=== PATIENT | female | born 1985 | race Caucasian/White ===

== ENCOUNTER 2017-05-06 17:43 | Inpatient (IN) | payer MEDICARE, OTHER ==
[2017-05-06] MEDS ORDERED: SODIUM CHLORIDE 0.9% 1,000 ML IV STA (18:12)
[2017-05-06 18:43] LABS: Anisocytosis Slight; Basophils % (A) 1 %; CHCM 33.1; Eosinophils # (A) 0.1 k/uL (0-0.7); Eosinophils % (A) 3 %; HCT 40.9 % (34.0-46.0); HDW 2.25; HGB 13.7 gm/dL (11.4-16.0); Luc # (Auto) 0.06; Luc % (Auto) 2; Lymphocytes # (A) 0.7 k/uL (1.0-4.8); Lymphocytes % (A) 29 %; MCH 36.6 pg (25.0-35.0); MCHC 33.6 g/dL (31.0-37.0); Macrocytosis Marked; Mean Platelet Volume 9.5; Monocytes # (A) 0.2 k/uL (0-1.0); Monocytes % (A) 11 %; Neutrophils # (A) 1.2 k/uL (1.3-7.7); Neutrophils % (A) 54 %; RBC 3.75 m/uL (3.80-5.40); RDW 16.9 % (11.5-15.5); WBC 2.3 k/uL (3.8-10.6); WBC (Perox) 2.66
--- NOTE | 2017-05-06 18:55 | ED ---
Psych HPI - General Source: patient, EMS, RN notes reviewed Mode of arrival: EMS <Nayeli Rosario - Last Filed: 05/06/17 18:53> <Jr Merlos - Last Filed: 05/06/17 23:20> - General Chief Complaint: Psychiatric Symptoms Stated Complaint: altered mental status Time Seen by Provider: 05/06/17 17:54 - History of Present Illness Initial Comments: 31-year-old female presents to the emergency department with a chief complaint of hallucinations. Patient is currently at [place] alcohol withdrawal. She started running around looking for her kids half naked. He states they were concerned states that her here. On arrival patient states that she feels as if she has been out of it as well as she is complaining of abdominal pain. Patient denies alcoholic and admits to history of pancreatitis. Patient denies any headaches, or any other symptoms at this time. Patient does have an abnormal voice however she states this is due to a thyroid complication surgery. Patient denies any fever chills any shortness of breath any chest pain. (Nayeli Rosario) - Related Data Home Medications Medication Instructions Recorded Confirmed Levothyroxine Sodium [Synthroid] 125 mcg PO DAILY 05/06/17 05/06/17 Multivitamins, Thera [Multivitamin 1 tab PO DAILY 05/06/17 05/06/17 (formulary)] Allergies Allergy/AdvReac Type Severity Reaction Status Date / Time morphine Allergy Unknown Verified 05/06/17 18:25 Review of Systems ROS Other: All systems not noted in ROS Statement are negative. <Nayeli Rosario - Last Filed: 05/06/17 18:53> ROS Other: All systems not noted in ROS Statement are negative. <Jr Merlos - Last Filed: 05/06/17 23:20> ROS Statement: Those systems with pertinent positive or pertinent negative responses have been documented in the HPI. Past Medical History Past Medical History: Unable to Obtain, Thyroid Disorder Additional Past Medical History / Comment(s): deviated trachea History of Any Multi-Drug Resistant Organisms: None Reported Additional Past Surgical History / Comment(s): thyroid, Past Psychological History: Unable to Obtain Smoking Status: Current every day smoker Past Alcohol Use History: Abuse, Daily Past Drug Use History: None Reported <Nayeli Rosario - Last Filed: 05/06/17 18:53> General Exam Limitations: no limitations, altered mental status General appearance: alert, in no apparent distress Head exam: Present: atraumatic, normocephalic, normal inspection Eye exam: Present: normal appearance, PERRL, EOMI. Absent: scleral icterus, conjunctival injection, periorbital swelling Neck exam: Present: normal inspection. Absent: tenderness, meningismus, lymphadenopathy Respiratory exam: Present: normal lung sounds bilaterally. Absent: respiratory distress, wheezes, rales, rhonchi, stridor Cardiovascular Exam: Present: regular rate, normal rhythm, normal heart sounds. Absent: systolic murmur, diastolic murmur, rubs, gallop, clicks GI/Abdominal exam: Present: soft, normal bowel sounds. Absent: distended, tenderness, guarding, rebound, rigid Neurological exam: Present: alert, oriented X3 Psychiatric exam: Present: normal affect, normal mood Skin exam: Present: warm, dry, intact, normal color. Absent: rash <Nayeli Rosario - Last Filed: 05/06/17 18:53> Medical Decision Making <Nayeli Rosario - Last Filed: 05/06/17 18:53> - Lab Data Result diagrams: 05/06/17 18:25 05/06/17 19:25 <Jr Merlos - Last Filed: 05/06/17 23:20> - Medical Decision Making 31-year-old female presents for altered mental status from alcohol rehabilitation. (Nayeli Rosario) EKG shows normal sinus rhythm at 65 bpm NJ interval is 152 QRS is 92 QT interval is 456 QTC is 474. Patient has inverted T waves in leads V1 through V4 as well as lead 3 I went into reevaluate the patient the patient was alert and oriented 3 and she did complain of some epigastric abdominal pain that she described as moderate. Patient denied any nausea or vomiting at this time. Patient states she used to be a heavy drinker. I spoke with Dr. Baum admitted the patient and wrote admitting orders (Jr Merlos) - Lab Data Lab Results 05/06/17 05/06/17 05/06/17 Range/Units 18:25 19:10 19:10 WBC 2.3 L (3.8-10.6) k/uL RBC 3.75 L (3.80-5.40) m/uL Hgb 13.7 (11.4-16.0) gm/dL Hct 40.9 (34.0-46.0) % MCV 109.0 H (80.0-100.0) fL MCH 36.6 H (25.0-35.0) pg MCHC 33.6 (31.0-37.0) g/dL RDW 16.9 H (11.5-15.5) % Plt Count 92 L (150-450) k/uL Neutrophils % 54 % Lymphocytes % 29 % Monocytes % 11 % Eosinophils % 3 % Basophils % 1 % Neutrophils # 1.2 L (1.3-7.7) k/uL Lymphocytes # 0.7 L (1.0-4.8) k/uL Monocytes # 0.2 (0-1.0) k/uL Eosinophils # 0.1 (0-0.7) k/uL Basophils # 0.0 (0-0.2) k/uL Anisocytosis Slight Macrocytosis Marked Sodium (137-145) mmol/L Potassium (3.5-5.1) mmol/L Chloride (98-107) mmol/L Carbon Dioxide (22-30) mmol/L Anion Gap mmol/L BUN (7-17) mg/dL Creatinine (0.52-1.04) mg/dL Est GFR (MDRD) Af Amer (>60 ml/min/1.73 sqM) Est GFR (MDRD) Non-Af (>60 ml/min/1.73 sqM) Glucose (74-99) mg/dL Plasma Lactic Acid Tye (0.7-2.0) mmol/L Calcium (8.4-10.2) mg/dL Phosphorus (2.5-4.5) mg/dL Magnesium (1.6-2.3) mg/dL Total Bilirubin (0.2-1.3) mg/dL AST (14-36) U/L ALT (9-52) U/L Alkaline Phosphatase (38-126) U/L Ammonia (<30) umol/L Troponin I (0.000-0.034) ng/mL Total Protein (6.3-8.2) g/dL Albumin (3.5-5.0) g/dL Amylase (30-110) U/L Lipase (23-300) U/L Urine Color Yellow Urine Appearance Clear (Clear) Urine pH 7.0 (5.0-8.0) Ur Specific [place] 1.013 (1.001-1.035) Urine Protein Negative (Negative) Urine Glucose (UA) Negative (Negative) Urine Ketones Negative (Negative) Urine Blood Negative (Negative) Urine Nitrite Negative (Negative) Urine Bilirubin Negative (Negative) Urine Urobilinogen <2.0 (<2.0) mg/dL Ur Leukocyte Esterase Moderate H (Negative) Urine RBC 1 (0-5) /hpf Urine WBC 5 (0-5) /hpf Ur Squamous Epith Cells 2 (0-4) /hpf Urine Bacteria Rare H (None) /hpf Hyaline Casts 1 (0-2) /lpf Urine Mucus Rare H (None) /hpf Urine HCG, Qual Not Detected (Not Detectd) Urine Opiates Screen Not Detected (NotDetected) Ur Oxycodone Screen Not Detected (NotDetected) Urine Methadone Screen Detected H (NotDetected) Ur Propoxyphene Screen Not Detected (NotDetected) Ur Barbiturates Screen Not Detected (NotDetected) U Tricyclic Antidepress Not Detected (NotDetected) Ur Phencyclidine Scrn Not Detected (NotDetected) Ur Amphetamines Screen Not Detected (NotDetected) U Methamphetamines Scrn Detected H (NotDetected) U Benzodiazepines Scrn Detected H (NotDetected) Urine Cocaine Screen Not Detected (NotDetected) U Marijuana (THC) Screen Not Detected (NotDetected) Serum Alcohol mg/dL 05/06/17 05/06/17 05/06/17 Range/Units 19:25 19:25 19:25 WBC (3.8-10.6) k/uL RBC (3.80-5.40) m/uL Hgb (11.4-16.0) gm/dL Hct (34.0-46.0) % MCV (80.0-100.0) fL MCH (25.0-35.0) pg MCHC (31.0-37.0) g/dL RDW (11.5-15.5) % Plt Count (150-450) k/uL Neutrophils % % Lymphocytes % % Monocytes % % Eosinophils % % Basophils % % Neutrophils # (1.3-7.7) k/uL Lymphocytes # (1.0-4.8) k/uL Monocytes # (0-1.0) k/uL Eosinophils # (0-0.7) k/uL Basophils # (0-0.2) k/uL Anisocytosis Macrocytosis Sodium 140 (137-145) mmol/L Potassium 3.9 (3.5-5.1) mmol/L Chloride 101 (98-107) mmol/L Carbon Dioxide 26 (22-30) mmol/L Anion Gap 13 mmol/L BUN 9 (7-17) mg/dL Creatinine 0.70 (0.52-1.04) mg/dL Est GFR (MDRD) Af Amer >60 (>60 ml/min/1.73 sqM) Est GFR (MDRD) Non-Af >60 (>60 ml/min/1.73 sqM) Glucose 82 (74-99) mg/dL Plasma Lactic Acid Tye 1.2 (0.7-2.0) mmol/L Calcium 10.4 H (8.4-10.2) mg/dL Phosphorus 4.4 (2.5-4.5) mg/dL Magnesium 1.7 (1.6-2.3) mg/dL Total Bilirubin 1.2 (0.2-1.3) mg/dL AST 181 H (14-36) U/L ALT 139 H (9-52) U/L Alkaline Phosphatase 121 (38-126) U/L Ammonia 24 (<30) umol/L Troponin I <0.012 (0.000-0.034) ng/mL Total Protein 6.8 (6.3-8.2) g/dL Albumin 4.1 (3.5-5.0) g/dL Amylase 79 (30-110) U/L Lipase 1736 H (23-300) U/L Urine Color Urine Appearance (Clear) Urine pH (5.0-8.0) Ur Specific [place] (1.001-1.035) Urine Protein (Negative) Urine Glucose (UA) (Negative) Urine Ketones (Negative) Urine Blood (Negative) Urine Nitrite (Negative) Urine Bilirubin (Negative) Urine Urobilinogen (<2.0) mg/dL Ur Leukocyte Esterase (Negative) Urine RBC (0-5) /hpf Urine WBC (0-5) /hpf Ur Squamous Epith Cells (0-4) /hpf Urine Bacteria (None) /hpf Hyaline Casts (0-2) /lpf Urine Mucus (None) /hpf Urine HCG, Qual (Not Detectd) Urine Opiates Screen (NotDetected) Ur Oxycodone Screen (NotDetected) Urine Methadone Screen (NotDetected) Ur Propoxyphene Screen (NotDetected) Ur Barbiturates Screen (NotDetected) U Tricyclic Antidepress (NotDetected) Ur Phencyclidine Scrn (NotDetected) Ur Amphetamines Screen (NotDetected) U Methamphetamines Scrn (NotDetected) U Benzodiazepines Scrn (NotDetected) Urine Cocaine Screen (NotDetected) U Marijuana (THC) Screen (NotDetected) Serum Alcohol <10 mg/dL Disposition <Nayeli Rosario - Last Filed: 05/06/17 18:53> Time of Disposition: 23:20 <Jr Merlos - Last Filed: 05/06/17 23:20> Clinical Impression: Pancreatitis, Altered mental status, Methadone withdrawal, Methamphetamine abuse Disposition: ADMITTED IP TO THIS HOSP Referrals: None,Stated [Primary Care Provider] - 1-2 days
[2017-05-06] MEDS ORDERED: LORazepam 2 MG/ML SYRINGE IV STA (19:26)
[2017-05-06 19:29] LABS: Appearance,Urine Clear (Clear); Bacteria,Urine Rare /hpf; Bilirubin,Urine Negative (Negative); Glucose,Urine (UA) Negative (Negative); Ketones,Urine Negative (Negative); Leukocyte Esterase,Urine Moderate (Negative); Mucus,Urine Rare /hpf; Nitrite,Urine Negative (Negative); Particle Count 5841; Protein,Urine Negative (Negative); RBC,Urine 1 /hpf (0-5); Specific Gravity,Urine 1.013 (1.001-1.035); Squamous Epithelial Cell,Urine 2 /hpf (0-4); UA Billing (MACRO vs. MICRO) MICRO; Urobilinogen,Urine <2.0 mg/dL (<2.0); WBC,Urine 5 /hpf (0-5)
[2017-05-06 19:53] LABS: ALT 139 U/L (9-52); AST 181 U/L (14-36); Alcohol <10 mg/dL; Alkaline Phosphatase 121 U/L (38-126); Amylase 79 U/L (30-110); Anion Gap 13 mmol/L; Blood Urea Nitrogen 9 mg/dL (7-17); Calcium 10.4 mg/dL (8.4-10.2); Carbon Dioxide 26 mmol/L (22-30); Chloride 101 mmol/L (98-107); Glucose 82 mg/dL (74-99); Magnesium 1.7 mg/dL (1.6-2.3); Non-African American GFR(MDRD) >60 (>60 ml/min/1.73 sqM); Phosphorous 4.4 mg/dL (2.5-4.5); Potassium 3.9 mmol/L (3.5-5.1); Sodium 140 mmol/L (137-145); Total Bilirubin 1.2 mg/dL (0.2-1.3); Total Protein 6.8 g/dL (6.3-8.2)
--- NOTE | 2017-05-06 19:59 | CT ---
EXAMINATION TYPE: CT brain wo con DATE OF EXAM: 05/06/2017 COMPARISON: NONE INDICATION: Patient poor historian. Patient shows signs of altered mental status. DLP: 804.7 mGycm, Automated exposure control for dose reduction was used. CONTRAST: None CT of the brain is performed utilizing 3 mm thick sections through the posterior fossa and 3 mm thick sections through the remaining calvarium. Study is performed within 24 hours of arrival to the hosp ital. No abnormal hyperdensity is present to suggest an acute intracranial hemorrhage. No mass lesion is evident. No acute infarcts are evident. Ventricles and sulci are appropriate for the patient age. There is mucosal thickening and opacification an anterior right sphenoid sinus. Remaining paranasal s inuses are clear. IMPRESSIONS: 1. No acute intracranial process.
--- NOTE | 2017-05-06 20:01 | XR ---
EXAMINATION TYPE: XR chest 2V DATE OF EXAM: 05/06/2017 COMPARISON: NONE INDICATION: Cough TECHNIQUE: Frontal and lateral views of the chest are obtained. FINDINGS: The heart size is normal. The pulmonary vasculature is normal. Multiple surgical clips in the right supraclavicular region. Suspicious infiltrates are evident. Nipp le piercing is on the left.. IMPRESSION: 1. No acute pulmonary process.
[2017-05-06] MEDS ORDERED: SODIUM CHLORIDE 0.9% 1,000 ML IV ONE (23:20)
[2017-05-07] MEDS: ENOXAPARIN 40 MG/0.4 ML SYRINGE SQ SCH (08:44)
[2017-05-07] MEDS: LEVOTHYROXINE 125 MCG TAB PO SCH (08:44)
[2017-05-07] MEDS: MULTIVITAMINS, THERA 1 EACH TAB PO SCH (13:21)
[2017-05-07] MEDS ORDERED: IBUPROFEN 400 MG TAB PO PRN (13:27)
[2017-05-07] MEDS ORDERED: ACETAMINOPHEN TAB 325 MG TAB PO PRN (13:27)
[2017-05-07] MEDS: DIAZEPAM 2 MG TAB PO SCH ×3 (17:13→21:08)
[2017-05-07] MEDS: NICOTINE 14MG/24HR PATCH TRANSDERM SCH (18:42)
[2017-05-07] MEDS: LORazepam 2 MG/ML SYRINGE IV PRN ×2 (18:42→23:26)
--- NOTE | 2017-05-07 22:23 | HP ---
DATE OF ADMISSION: 05/06/2017 PRESENTING COMPLAINT: Hallucinations. HISTORY OF PRESENTING COMPLAINT: This is a 31-year-old patient brought in from [place]. Patient was drinking alcohol for years, then became clean for years; then 2 months ago she relapsed, drinking at least a fifth of vodka. Patient was sent in because she was seen walking around naked, looking for her kids. Patient states that she had gone into her period and she wet her pants and the bathroom was across and she got up. She was a little bit confused because of the medication she had received and she was actually asking for her kids to get a pair of pants; hence the confusion. The patient had a growth in the upper chest that went to the lymph nodes and thyroid and the neck and patient had multiple surgeries, including a vocal cord implant, hence making her voice very husky, hoarse; that is how she talks. Patient's last drink was 5 days ago. Patient was somewhat shaky, restless and tearful. Patient was also having some epigastric pain, found to have pancreatitis. Patient also smokes about half a pack a day. REVIEW OF SYSTEMS: CONSTITUTIONAL: Tired. HEENT: Hoarse voice. RESPIRATORY: None. CARDIOVASCULAR: None. GASTROINTESTINAL: As above. GENITOURINARY: None. MUSCULOSKELETAL: None. DERMATOLOGIC: None. HEMATOLOGIC: None. LYMPHATIC: None. PSYCHIATRY: Anxious, somewhat depressed. NEUROLOGICAL: None. PAST MEDICAL HISTORY: 1. 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 2. Vocal cord implant. SOCIAL HISTORY: Patient is a smoker, was drinking alcohol, a fifth a day at least for 2 years after being clean for years. . Patient is on Disability. FAMILY HISTORY: Reviewed; noncontributory to presentation. HOME MEDICATIONS: 1. Multivitamin 1 tablet p.o. daily. 2. Synthroid 125 mcg p.o. daily. On examination, temperature 97.4, pulse 80, respiration 18, blood pressure 133/94, pulse ox 92% on room air GENERAL APPEARANCE: Average build. Lying in bed. Somewhat tearful. EYES: Pupils equal. Conjunctivae normal. HEENT: Oral cavity normal. Hoarse voice. NECK: JVD not raised. Mass not palpable. RESPIRATORY: Effort normal. LUNGS: Slightly decreased breath sounds. CARDIOVASCULAR: First and second sounds normal. No edema. ABDOMEN: Mild epigastric tenderness. No guarding or rigidity. Liver and spleen not palpable. LYMPHATICS: No lymph node palpable in neck or axillae. PSYCHIATRY: Alert and oriented x3. Actually appearing tearful. INVESTIGATIONS: White count 2.3, hemoglobin 13.7, platelets 92. Potassium 3.9. AST 181, ALT 139, amylase 79, lipase 1736. UA positive for leukocyte esterase. Urine drug screen positive for methadone, methamphetamine, benzodiazepine. Alcohol less than 10. ASSESSMENT: 1. Acute alcohol withdrawal with hallucinations and some effect of medications, including trazodone, that patient is getting at night, hence making the patient delirious. 2. Chronic alcoholism. 3. Alcoholic hepatitis. 4. Acute pancreatitis from alcoholism. 5. Possible depression, anxiety. 6. Thrombocytopenia from alcoholism. PLAN: Patient will be put on Valium 2 mg 4 times a day. Will also put the patient on a full liquid diet. Will get a psychiatry consultation. Will confirm patient's home medications. Will give a heating pad for pain. Care was discussed with the patient. Patient states that she is not crazy; she is only anxious and disturbed about the whole alcohol problem.
[2017-05-07] MEDS: ONDANSETRON 4 MG/2 ML VIAL IVP PRN (23:45)
[2017-05-07 23:56] VITALS: RESP 18
[2017-05-08] MEDS: LORazepam 2 MG/ML SYRINGE IV PRN ×3 (04:32→19:34)
[2017-05-08] MEDS: LEVOTHYROXINE 125 MCG TAB PO SCH (06:28)
[2017-05-08 08:19] LABS: Anisocytosis Slight; Basophils % (A) 1 %; CH 35.8; CHCM 32.6; Eosinophils # (A) 0.1 k/uL (0-0.7); Eosinophils % (A) 3 %; HCT 39.4 % (34.0-46.0); HDW 2.27; HGB 12.6 gm/dL (11.4-16.0); Luc # (Auto) 0.08; Luc % (Auto) 3; Lymphocytes % (A) 36 %; MCH 35.3 pg (25.0-35.0); MCHC 31.9 g/dL (31.0-37.0); MCV 110.5 fL (80.0-100.0); Macrocytosis Marked; Mean Platelet Volume 8.5; Monocytes # (A) 0.3 k/uL (0-1.0); Monocytes % (A) 11 %; Neutrophils # (A) 1.2 k/uL (1.3-7.7); Neutrophils % (A) 45 %; RBC 3.57 m/uL (3.80-5.40); WBC 2.6 k/uL (3.8-10.6); WBC (Perox) 2.73
[2017-05-08] MEDS: DIAZEPAM 2 MG TAB PO SCH ×4 (08:26→21:14)
[2017-05-08] MEDS: ONDANSETRON 4 MG/2 ML VIAL IVP PRN ×3 (08:26→21:19)
[2017-05-08] MEDS: ENOXAPARIN 40 MG/0.4 ML SYRINGE SQ SCH (08:26)
[2017-05-08] MEDS: NICOTINE 14MG/24HR PATCH TRANSDERM SCH (08:26)
[2017-05-08 08:59] LABS: Amylase 64 U/L (30-110); Anion Gap 11 mmol/L; Blood Urea Nitrogen 6 mg/dL (7-17); Calcium 7.8 mg/dL (8.4-10.2); Carbon Dioxide 27 mmol/L (22-30); Chloride 103 mmol/L (98-107); Glucose 113 mg/dL (74-99); Non-African American GFR(MDRD) >60 (>60 ml/min/1.73 sqM); Potassium 3.6 mmol/L (3.5-5.1); Sodium 141 mmol/L (137-145)
--- NOTE | 2017-05-08 09:38 | P.CONS ---
History of Present Illness - Reason for Consult Consult date: 05/08/17 Pancreatitis Requesting physician: Nikhil Baum - History of Present Illness 31-year-old female resident [facility], with a long-standing history of EtOH abuse drinks fifth of vodka daily last drink about a week ago, IVDA heroin last usage several years ago with known hepatitis C, thyroid carcinoma with multiple surgeries, nicotine cigarette dependency and recurrent pancreatitis. Patient admitted from [facility] with acute upper abdominal pain. Afebrile. Consultation requested for pancreatitis. Admission white count 2.3. Hemoglobin 13.7. MCV 109. Platelet 92. Total bilirubin 1.2. AST 181. ALT 139. Alkaline phosphates 121 ammonia 24. Lipase 1736. Lipase today 1526. Still reports abdominal pain. Patient started hepatitis C treatment within the past year but quit secondary to intolerance. She has known for about 2 years. Last episode of pancreatitis a few months ago. Review of Systems Constitutional: Denies fever, chills, sweats, weight gain, or loss. HEENT: Negative for migraines, blurred vision or loss, earaches, drainage, tinnitus, oral mucosal lesions, dysphagia, or odynophagia. CARDIAC: Negative for chest pain, arrhythmias, or palpitation. RESPIRATORY: Negative for shortness of breath, hemoptysis, cough, or sputum production. GI: See HPI for pertinent findings. : Negative for hematuria, urgency, frequency, polyuria, or dysuria. GYNc: Denies possibility of . Negative vaginal discharge. MUSCULOSKELETAL: Negative for muscle aches, swelling, arthritis, and arthralgias. NEUROLOGIC: Negative for stroke or TIA. ENDOCRINE: Thyroid carcinoma with multiple surgeries. SKIN: Negative for rash or itching. PSYCHIATRIC: Negative history for depression and anxiety All systems: negative (See HPI) Past Medical History Past Medical History: Cancer, Thyroid Disorder Additional Past Medical History / Comment(s): deviated trachea, vocal cord implant r/t cancer and spread to lungs History of Any Multi-Drug Resistant Organisms: None Reported Additional Past Surgical History / Comment(s): thyroid, vocal cord implant Past Psychological History: Unable to Obtain Smoking Status: Current every day smoker Additional Drug Use History / Comment(s): pt came from [facility] for etoh detox. pt denies any alcohol or drug abuse Medications and Allergies Home Medications Medication Instructions Recorded Confirmed Type Levothyroxine Sodium [Synthroid] 125 mcg PO DAILY 06/18/17 06/18/17 History Multivitamins, Thera [Multivitamin 1 tab PO DAILY 05/06/17 05/06/17 History (formulary)] Allergies Allergy/AdvReac Type Severity Reaction Status Date / Time morphine Allergy Unknown Verified 05/06/17 18:25 Physical Exam Vitals: Vital Signs Temp Pulse Resp BP Pulse Ox 05/08/17 07:00 97.2 F L 71 18 128/89 97 05/07/17 23:00 98.9 F 70 18 138/88 92 L 05/07/17 15:00 98.7 F 71 12 133/99 92 L Intake and Output 05/07/17 05/08/17 05/08/17 22:59 06:59 14:59 Other: Voiding Method Toilet # Voids 2 2 # Bowel Movements 0 General appearance: The patient is alert, oriented, in no acute distress. HET: Head is normocephalic and atraumatic. Pupils are equal and reactive. Oropharynx is clear without lesions. Neck: Supple without lymphadenopathy. Trachea midline. Heart: S1 S2. Regular rate and rhythm. Lungs: No crackles or wheezes are heard. Abdomen: Soft, tenderness midepigastrium, nondistended with bowel sounds. No peritoneal signs. No palpable organomegaly or masses. Extremities: Normal skin color and turgor. No cyanosis, rash, ulceration, clubbing, or edema. Radial and pedal pulses are 2/4 bilaterally. Neurological: No focal deficits. Strength and sensation are grossly intact. Results CBC & Chem 7: 05/08/17 07:52 05/08/17 07:52 Labs: Abnormal Lab Results - Last 24 Hours (Table) 05/08/17 05/08/17 Range/Units 07:52 07:52 WBC 2.6 L (3.8-10.6) k/uL RBC 3.57 L (3.80-5.40) m/uL MCV 110.5 H (80.0-100.0) fL MCH 35.3 H (25.0-35.0) pg RDW 17.0 H (11.5-15.5) % Plt Count 111 L (150-450) k/uL Neutrophils # 1.2 L (1.3-7.7) k/uL BUN 6 L (7-17) mg/dL Glucose 113 H (74-99) mg/dL Calcium 7.8 L (8.4-10.2) mg/dL Lipase 1526 H (23-300) U/L Microbiology - Last 24 Hours (Table) 05/06/17 19:10 Urine Culture - Final Urine,Voided US - abdomen: pending Assessment and Plan (1) Alcoholic pancreatitis Status: Acute (2) Alcoholic hepatitis Status: Acute (3) ETOH abuse Status: Acute (4) Hepatitis C Status: Chronic (5) Heroin abuse Narrative/Plan: History of heroin abuse Status: Resolved Plan: 1. Supportive measures. IV hydration. Light diet. 2. Ultrasound abdomen. 3. Will obtain hepatitis panel quantitative measurement genotype. 4. Alcohol abstinence strongly advised. Will follow closely with you. Thank you for this kind referral and the opportunity to participate in the care of your patient. This consultation was discussed with Nasr. The impression and plan of care have been directed as dictated.
--- NOTE | 2017-05-08 10:27 | US ---
EXAMINATION TYPE: US abdomen limited DATE OF EXAM: 05/08/2017 COMPARISON: NONE CLINICAL HISTORY: pancreatitis. Abdominal pain EXAM MEASUREMENTS: Liver Length: 24.2 cm Gallbladder Wall: 0.3 cm CBD: 0.5 cm Right Kidney: 11.7 x 4.0 x 4.9 cm Pancreas: visualized portions appear heterogeneous Liver: enlarged, attenuating, difficult to penetrate Gallbladder: no evidence of stones Evidence for sonographic Veliz's sign: no CBD: wnl Right Kidney: no evidence of hydronephrosis or mass IMPRESSION: 1. Pancreas appears heterogeneous. This can be associated with pancreatitis. Correlate with serum enz ymes and with CT scan as clinically warranted. 2. Liver appears to be enlarged measuring 24 cm and coarsened in echo pattern seen with fatty infiltr ation, hepatocellular disease or hepatitis.
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
[2017-05-08 12:39] LABS: Hepatitis B Surface Ag Index 0.05
[2017-05-08 12:45] LABS: Hepatitis B Core IgM Index 0.06
[2017-05-08 12:56] LABS: Hepatitis C Virus IgG Ab Reactive (Negative)
[2017-05-08] MEDS: MULTIVITAMINS, THERA 1 EACH TAB PO SCH (13:25)
[2017-05-08] MEDS: SODIUM CHLORIDE 0.9% 1,000 ML IV SCH ×3 (13:25→21:19)
--- NOTE | 2017-05-08 20:40 | P.PN ---
Progress Note - Text DATE OF SERVICE: 05/08/2017 PRESENTING COMPLAINT: Hallucinations INTERVAL HISTORY: This patient presented with hallucinations secondary to alcohol withdrawal. Remains on Valium 2 mg 4 times a day to aid in withdrawal symptoms. Patient complains frequently of abdominal pain and wants pain medications for said pain. GI consulted. Patient has repeatedly stated she receives methadone however is unable to provide enough details to validate. Nursing staff will follow through on researching this issue will await their findings. Anxious, Not really eating much, not walking around much either. Is ambulatory to and from the bathroom with assistance. REVIEW OF SYSTEMS: Done for constitutional ,cardiovascular, GI, pulmonary with relevant findings as above. CURRENT MEDICATIONS Valium, Lovenox, Synthroid, Ativan, melatonin, nicotine patch. PHYSICAL EXAM VITAL SIGNS: Temperature 97.2, pulse 71, blood pressure 128/89, respiratory rate 18, oxygen saturation 97% on room air. GENERAL APPEARANCE: Lying in bed, uncomfortable, anxious appearing. EYES: Pupils equal. Conjunctiva normal. NECK: JVD not raised. Mass not palpable. RESPIRATORY: Respiratory effort normal. Lungs clear to auscultation. CARDIOVASCULAR: First and second sounds normal. No edema. ABDOMEN: Soft. Liver and spleen not palpable. Mild tenderness noted. No mass palpable. PSYCHIATRY: Alert and oriented x3. Mood and affect anxious. INVESTIGATIONS: White blood cell count 2.6, hemoglobin 12.6, platelet count 111, BMP unremarkable. Amylase 64 lipase 1526. Abdominal ultrasound: Juan Appears Heterogeneous. Associated with Pancreatitis , Correlate Serum Enzymes and CT As Clinically Warranted. Liver Appears to Be Enlarged Measuring 24 Cm and Coarsened and Echo Pattern Seen with Fatty Infiltration Hepatocellular Disease or Hepatitis. ASSESSMENT: Acute alcohol withdrawal with hallucinations, some effect of medications including trazodone which she receives at night causing delirium Chronic alcoholism Alcoholic hepatitis Acute pancreatitis from alcoholism, slow to respond. Depression, anxiety unspecified, rule out alcohol-induced depression. Thrombocytopenia from alcoholism. PLAN: We'll continue IV fluids, light diet supportive measures, hepatitis C quantitative measurement genotype ordered. We'll continue Valium and Ativan for delirium, anxiety and withdrawal symptoms. Await information regarding methadone use by the patient. When patient is medically cleared she wants to be transferred to inpatient psychiatric care and this will be a voluntary admission. We'll continue to follow closely. TELEPHONE INSTRUMENT SUPERVISOR statement: Patient was seen and examined by nurse practitioner Heather Lau and all elements of the case discussed with attending Dr. Baum
[2017-05-08] MEDS ORDERED: MELATONIN 5 MG TABLET PO SCH (21:00)
[2017-05-09] MEDS: LORazepam 2 MG/ML SYRINGE IV PRN ×3 (00:52→10:00)
[2017-05-09] MEDS: ONDANSETRON 4 MG/2 ML VIAL IVP PRN ×2 (05:18→11:20)
[2017-05-09] MEDS: LEVOTHYROXINE 125 MCG TAB PO SCH (06:17)
[2017-05-09 07:38] VITALS: BP 145/87; PULSE 57; TEMP 97
[2017-05-09] MEDS: NICOTINE 14MG/24HR PATCH TRANSDERM SCH (07:47)
[2017-05-09] MEDS: SODIUM CHLORIDE 0.9% 1,000 ML IV SCH (07:47)
[2017-05-09] MEDS: ENOXAPARIN 40 MG/0.4 ML SYRINGE SQ SCH (07:47)
[2017-05-09] MEDS: DIAZEPAM 2 MG TAB PO SCH ×2 (07:47→12:00)
[2017-05-09 08:26] LABS: Anisocytosis Slight; CH 35.9; CHCM 32.2; HCT 39.9 % (34.0-46.0); HDW 2.23; HGB 12.8 gm/dL (11.4-16.0); MCH 36.1 pg (25.0-35.0); MCHC 32.2 g/dL (31.0-37.0); MCV 112.1 fL (80.0-100.0); Macrocytosis Marked; Mean Platelet Volume 8.7; RBC 3.56 m/uL (3.80-5.40); WBC 3.1 k/uL (3.8-10.6); WBC (Perox) 3.13
[2017-05-09 08:49] LABS: Amylase 57 U/L (30-110); Anion Gap 9 mmol/L; Blood Urea Nitrogen 4 mg/dL (7-17); Calcium 8.1 mg/dL (8.4-10.2); Carbon Dioxide 26 mmol/L (22-30); Chloride 106 mmol/L (98-107); Glucose 126 mg/dL (74-99); Non-African American GFR(MDRD) >60 (>60 ml/min/1.73 sqM); Potassium 3.7 mmol/L (3.5-5.1); Sodium 141 mmol/L (137-145)
[2017-05-09 10:28] LABS: Add Differential Manual Differential
[2017-05-09 10:35] LABS: Nucleated Red Blood Cells 0 /100 WBC (0-0); Total Cells Counted 100
--- NOTE | 2017-05-09 11:23 | P.PN ---
Subjective Principal diagnosis: Pancreatitis 21-year-old female with a history of EtOH abuse IVDA heroin abuse hepatitis C admitted with pancreatitis. Feels slightly better today. Requesting methadone. Lipase slowly improving 1226. Amylase 57. Hepatitis C IgG antibody reactive; quantitative level genotype pending. Ultrasound abdomen reported no evidence of pseudocyst or focal liver lesion. Hepatomegaly. Heterogeneous pancreas associated with possible pancreatitis. Objective - Vital Signs Vital signs: Vital Signs Temp 97.0 F L 05/09/17 07:00 Pulse 57 L 05/09/17 07:00 Resp 18 05/09/17 07:00 BP 145/87 05/09/17 07:00 Pulse Ox 93 L 05/09/17 07:00 Intake & Output 05/08/17 05/09/17 05/09/17 18:59 06:59 18:59 Intake Total 1050 Balance 1050 Intake: Oral 1050 Other: Voiding Method Bedside Commode # Voids 2 2 - Exam General appearance: The patient is alert, oriented, in no acute distress. HET: Head is normocephalic and atraumatic. Pupils are equal and reactive. Oropharynx is clear without lesions. Neck: Supple without lymphadenopathy. Trachea midline. Heart: S1 S2. Regular rate and rhythm. Lungs: No crackles or wheezes are heard. Abdomen: Soft, mild tenderness midepigastrium, nondistended with bowel sounds. No peritoneal signs. No palpable organomegaly or masses. Extremities: Normal skin color and turgor. No cyanosis, rash, ulceration, clubbing, or edema. Radial and pedal pulses are 2/4 bilaterally. Neurological: No focal deficits. Strength and sensation are grossly intact. - Labs CBC & Chem 7: 05/09/17 08:04 05/09/17 08:04 Labs: Abnormal Lab Results - Last 24 Hours (Table) 05/09/17 05/09/17 Range/Units 08:04 08:04 WBC 3.1 L (3.8-10.6) k/uL RBC 3.56 L (3.80-5.40) m/uL MCV 112.1 H (80.0-100.0) fL MCH 36.1 H (25.0-35.0) pg RDW 17.0 H (11.5-15.5) % Plt Count 110 L (150-450) k/uL Lymphocytes # (Manual) 0.7 L (1.0-4.8) k/uL BUN 4 L (7-17) mg/dL Glucose 126 H (74-99) mg/dL Calcium 8.1 L (8.4-10.2) mg/dL Lipase 1226 H (23-300) U/L Assessment and Plan (1) Alcoholic pancreatitis Status: Acute (2) Alcoholic hepatitis Status: Acute (3) ETOH abuse Status: Acute (4) Hepatitis C Status: Chronic (5) Heroin abuse Narrative/Plan: History of heroin abuse Status: Resolved (6) Hepatomegaly Status: Chronic Plan: 1. Supportive measures. Discharge per medicine back to rehabilitation. Follow up in GI office after discharge from rehab reevaluation and discussion of possible hepatitis C treatment. Heroin and alcohol abstinence strongly advised. We'll follow as needed. Assessment and plan a care discussed with Dr. Jordan
[2017-05-09] MEDS: MULTIVITAMINS, THERA 1 EACH TAB PO SCH (12:00)
--- NOTE | 2017-05-09 16:29 | PN ---
DATE OF SERVICE: 05/08/2017 ATTENDING NOTE: This patient was seen and examined by me on 05/08/17. I reviewed the note of my nurse practitioner Ms. Lau and discussed it with her and agree.
--- NOTE | 2017-05-09 16:47 | PN ---
DATE OF SERVICE: 05/08/2017 ATTENDING NOTE: This patient was seen and examined by me on 05/08/17. I reviewed the note of my nurse practitioner, Ms. Lau, discussed and reviewed. Additional findings as below. Patient was admitted with alcohol withdrawal. Patient is also claiming to take methadone. When we had to check with the nurse, really could not validate that. It looks like she is taking ( ) not any more and declined to add any additional ( ) medications. On examination, abdomen is soft, nontender. Patient is somewhat anxious-appearing. Patient's white count is 2.6, hemoglobin 12.6. Lipase of 1526. ASSESSMENT: 1. Acute alcohol withdrawal and hallucinations. 2. Acute pancreatitis from alcoholism. 3. Drug-seeking behavior. PLAN: Continue current medication and treatment plan. Continue with AMIRAH Felton scale. Care was discussed with the patient. I told her she was not getting methadone; hence we cannot add additional pain medication to compensate for the same.
[2017-05-10 14:45] LABS: HCV Qualitative Result Not detected (Not detected)
--- NOTE | 2017-05-11 15:19 | DS ---
DATE OF ADMISSION: 05/06/2017 DATE OF DISCHARGE: 05/09/2017 FINAL DIAGNOSES: 1. Acute alcohol withdrawal and hallucinations with acute delirium tremens. 2. Chronic ethanol. 3. Alcoholic hepatitis. 4. Acute pancreatitis from alcohol intake. 5. Depression not otherwise specified. 6. Anxiety not otherwise specified. 7. Thrombocytopenia from alcoholism. DISCHARGE DISPOSITION: The patient will be discharged in stable condition with guarded prognosis. HISTORY OF PRESENT ILLNESS: This 31-year-old woman with a past medical history of multiple medical problems was admitted with significant history of ethanol. The patient was treated symptomatically and improved significantly. On exam, vitals are stable. CARDIOVASCULAR SYSTEM: S1, S2 muffled. ABDOMEN: Soft. NERVOUS SYSTEM: No focal deficit. Gastroenterology saw the patient. DISCHARGE ADVICE AND MEDICATIONS: 1. Diet is cardiac. 2. Activity limited until followup. 3. Follow up with Dr. Heath in 2 to 3 days. 4. Follow up with Gastroenterology as recommended. 5. Synthroid 120 mcg p.o. daily. 6. Ativan 1 mg p.o. t.i.d. p.r.n. 7. Multivitamins 1 p.o. daily. 8. Habitrol 14 daily. Follow up with [facility] as advised. Once again, the patient will be discharged in a stable condition with guarded prognosis.
== END 2017-05-09 15:32 | disposition home or self-care (01) | DRG 896 ==
LOC: EC 17:43 → 4MS4W 23:20
PROVIDERS: ADMIT Hospitalist; ATTEND Hospitalist
DX: F10.231 Alcohol dependence with withdrawal delirium (principal); K85.20 Alcohol induced acute pancreatitis without necrosis or infection; F11.10 Opioid abuse, uncomplicated; D69.59 Other secondary thrombocytopenia; K70.10 Alcoholic hepatitis without ascites; F32.9 Major depressive disorder, single episode, unspecified; F41.9 Anxiety disorder, unspecified; B19.20 Unspecified viral hepatitis C without hepatic coma; F17.210 Nicotine dependence, cigarettes, uncomplicated; E07.9 Disorder of thyroid, unspecified; T43.215A Adverse effect of selective serotonin and norepinephrine reuptake inhibitors, initial encounter; F15.10 Other stimulant abuse, uncomplicated; Z76.5 Malingerer [conscious simulation]; Z85.850 Personal history of malignant neoplasm of thyroid; Z79.899 Other long term (current) drug therapy; Z88.5 Allergy status to narcotic agent
CPT/HCPCS: 36415; 70450; 71020; 76705; 80048; 80053; 80074; 80306; 80320; 81001; 81025; 82140; 82150; 83605; 83690; 83735; 84100; 84484; 85025; 87086; 87522; 93005; 96361; 96374; 99285